=== PATIENT | male | born 1950 | race Caucasian/White ===

== ENCOUNTER → 2019-11-07 | Outpatient (CLI) | payer MEDICARE ==
--- NOTE | 2019-11-07 12:51 | RAD ---
EXAM: Left knee, 3 views. HISTORY: Twisting injury. COMPARISON: None. FINDINGS: 3 views of the left knee are obtained. There is no fracture, dislocation or subluxation. There is mild tricompartmental spurring. There is a small joint effusion. IMPRESSION: Mild osteoarthritis of the left knee with small joint effusion. Electronically signed by: Catherine Gibbons MD (11/07/2019 12:48 PM) [email or web address]
== END | disposition home or self-care (01) ==
LOC: RAD 11:29
PROVIDERS: ATTEND Family Medicine
DX: M17.12 Unilateral primary osteoarthritis, left knee (principal); M25.462 Effusion, left knee
CPT/HCPCS: 73562